=== PATIENT | female | born 1965 ===

== ENCOUNTER 2018-09-29 14:18 | Outpatient (CLI) | payer BC | END 2018-09-29 14:19 | disposition home or self-care (01) | LOC: C.CTH 14:18 ==

== ENCOUNTER 2018-10-02 12:24 | Outpatient (CLI) | payer BC | END 2018-10-02 12:25 | disposition home or self-care (01) | LOC: C.LAB 12:24 | DX: K81.9 Cholecystitis, unspecified (principal) ==

== ENCOUNTER 2018-10-08 09:03 | Day surgery (SDC) | payer BC ==
[2018-10-02 12:32] VITALS: BMI 22.6
[2018-10-08] MEDS ORDERED: Bupivacaine 0.25% 20 ML INJ IJ ONE (09:23)
[2018-10-08] MEDS ORDERED: Sodium Chloride 0.9% 40 ML IV ONE (09:23)
[2018-10-08] MEDS ORDERED: Lidocaine/Epinephrine 1% 1:100000 10 ML IJ ONE (09:24)
[2018-10-08] MEDS ORDERED: ceFAZolin 1 gm in NS 2 GM/200 ML BAG IVPB ONE (09:24)
[2018-10-08] MEDS ORDERED: Bupivacaine Liposomal Inj 20 ml INFIL ONE (10:25)
[2018-10-08] MEDS ORDERED: Midazolam 2 MG/2 ML VIAL ONE (10:39)
[2018-10-08] MEDS ORDERED: Propofol 10 mg/ml Inj (20 ML) ONE (10:39)
[2018-10-08] MEDS ORDERED: Neostigmine 1:1000 (1 mg/ml) Inj ONE (11:52)
[2018-10-08] MEDS ORDERED: Bacitracin 500 Units/gm Oint Foilpak UD ONE (12:16)
[2018-10-08] MEDS ORDERED: Oxycodone/Acetaminophen 5/325 mg Tab PO PRN (12:26)
--- NOTE | 2018-10-08 12:26 | PCM.SURG1 ---
Surgeon's Initial Post Op Note - Surgeon's Notes Surgeon: Dr. Deal Material Crew Supervisor: Dr. Richey PGY4, Guillermina AGUILAR Type of Anesthesia: General Endo, Block Regional, Local Pre-Operative Diagnosis: cholelithiasis Operative Findings: chronically inflammed gallbladder Post-Operative Diagnosis: same Operation Performed: robotic assisted laparoscopic cholecystectomy and TAP Block Specimen/Specimens Removed: gallbladder Estimated Blood Loss: EBL {In ML}: 10 Blood Products Given: N/A Drains Used: No Drains Post-Op Condition: Good Date of Surgery/Procedure: 10/08/18 Time of Surgery/Procedure: 12:26
[2018-10-08] MEDS: HYDROmorphone 0.5 mg/0.5 ml ISec IVP PRN ×4 (12:30→13:09)
[2018-10-08] MEDS ORDERED: Lactated Ringer's 1,000 ML IV ONE ×2 (12:50)
--- NOTE | 2018-10-08 14:41 | OP ---
PROCEDURE DATE: 10/08/2018 PREOPERATIVE DIAGNOSES: 1. Chronic cholecystitis and cholelithiasis. 2. Abdominal pain. POSTOPERATIVE DIAGNOSES: 1. Chronic cholecystitis and cholelithiasis. 2. Extensive peritoneal adhesions in the right upper quadrant. PROCEDURES: 1. Robotic cholecystectomy. 2. Robotic adhesiolysis and enterolysis. 3. Laparoscopic bilateral transversus abdominis plane block placement. 4. Robotic indocyanine green fluoroscopy. SURGEON: Alexy Deal MD CORPORATE DIRECTOR OF HUMAN RESOURCES: LAUREN Rae and Kimberly Richey, PGY-2, Resident. TYPE OF ANESTHESIA: General endotracheal tube anesthesia. ESTIMATED BLOOD LOSS: Around 10 mL. DRAINS: None. PATHOLOGY: Gallbladder with gallstone was sent for pathology. COMPLICATIONS: None. INTRAOPERATIVE FINDINGS: The patient had changes of chronic cholecystitis and cholelithiasis and the patient also had extensive peritoneal adhesions in the right upper quadrant, omentum, colon as well as the duodenum was firmly adhesed to the gallbladder. DESCRIPTION OF PROCEDURE: On intraoperative steps this, 53-year-old female with diagnosed with chronic cholecystitis and cholelithiasis and the patient was consented for the robotic cholecystectomy, possible open and brought to the OR, placed supine on the operating table. After induction of the anesthesia, the abdomen was prepped and draped in the usual sterile fashion. A supraumbilical transverse incision was made using open technique. Peritoneal cavity was entered and pneumo was created. Another three 8-mm port was placed in the upper abdomen and the robot was brought in. Camera arm as well as arm 1 and arm 2 were docked and the gallbladder appeared to be adhesed to the omentum and colon and the first lysis of adhesions was done. The fundus was retracted cranially and now the body of the gallbladder and the infundibulum was identified and it was firmly adhesed to the colon as well as the duodenum and lysis of adhesions was done. Calot's triangle dissection was done. Cystic duct and cystic artery were identified. The top-down approach was done. Intraoperative firefly was used to identify the ductal anatomy. After the proper identification of the cystic duct and cystic artery, the cystic duct and cystic artery were clipped at three places and cut in between two clips near the gallbladder and gallbladder was dissected free from the gallbladder fossa, taken in EndoCatch bag, taken out through the umbilical port site and sent off the table for the pathology. There was proper hemostasis in each and every part of the procedure. The bilateral TAP block was given. The 30:30 mL of Exparel with saline was injected into the transverse abdominis muscles plain area and after proper TAP block bilaterally, all the instruments were taken out. All the ports were taken out under vision. Pneumo was deflated and umbilical port site was closed in two layers. The fascia with 0 Vicryl interrupted sutures, skin with a 4-0 Monocryl and dry sterile dressing was applied. The patient tolerated the procedure well. Count of instrument and gauze were correct. There were no apparent complications. Alexy Deal MD
[2018-10-08 15:03] VITALS: PULSE 59; RESP 15
[2018-10-08 15:46] VITALS: BP 143/71; TEMP 97.9; O2SAT 96
== END 2018-10-08 15:57 | disposition home or self-care (01) ==
LOC: C.SDS 09:03
PROVIDERS: ATTEND Surgery Surgical Critical Care
DX: K80.10 Calculus of gallbladder with chronic cholecystitis without obstruction (principal); K66.0 Peritoneal adhesions (postprocedural) (postinfection); I10 Essential (primary) hypertension; Z79.899 Other long term (current) drug therapy; Z98.51 Tubal ligation status
CPT/HCPCS: 47562; 64488; 88304; J0690; J1170; J2250; J2405; J2704; J2710; J3010; J7040; J7120; S2900